=== PATIENT | female | born 1985 | race Caucasian/White ===

== ENCOUNTER → 2018-10-16 12:39 | Outpatient (CLI) | payer OTHER, SELFPAY ==
[2018-10-16 10:08] VITALS: BMI 21.6
== END ==
PROVIDERS: Referring Provider Nurse Practitioner Women's Health; Visit Provider Nurse Practitioner Women's Health
DX: N89.8 Other specified noninflammatory disorders of vagina (principal)
CPT/HCPCS: 87070; 87077; 87186; 87205

== ENCOUNTER → 2018-12-06 11:09 | Outpatient (CLI) | payer OTHER, SELFPAY ==
[2018-11-22 10:29] VITALS: BMI 21.6
[2018-12-06 12:27] LABS: Absolute Lymphocyte Count 1.88 X10^3/ul (0.83-4.51); Basophil# 0.02 X10^3/uL; Basophil% 0.4 % (0-1); Eosinophil# 0.17 X10^3/uL; Eosinophils% 3.1 % (0-5); Hematocrit 46.2 % (37-47); Hemoglobin 15.3 g/dl (12.0-15.0); Lymphocyte # 1.88 X10^3/ul (4.0); Lymphocyte % 34.6 % (19-41); Mean Corp Hgb Conc 33.1 g/gl (32-36); Mean Corpuscular Hgb 29.9 pg (27.0-32.0); Mean Corpuscular Volume 90.2 fL (81-99); Mean Platelet Vol. 9.2 fl (6.2-12.0); Monocyte% 7.4 % (0-10); Neutrophil # 2.97 X10^3/uL (2.7-7.7); Neutrophil % 54.5 % (47-70); Platelet Count 290 K/mm3 (150-450); RBC Distribution Width CV 12.2 % (11.6-14.6); RBC Distribution Width SD 39.9 fl (35.1-43.9); Red Blood Count 5.12 M/mm3 (4.2-5.4); White Blood Count 5.4 K/mm3 (4.4-11.0)
[2018-12-06 12:30] LABS: POSITIVE COUNT NO; POSITIVE DIFFERENTIAL NO; POSITIVE MORPHOLOGY NO
[2018-12-06 13:06] LABS: Hemoglobin A1c 5.3 % (4.2-6.3)
[2018-12-06 13:23] LABS: Cholesterol 185 mg/dL (200); High Density Lipoprotein 75 mg/dL; Thyroid Stim Hormone (TSH) 0.65 uIU/mL (0.358-3.74); Triglycerides 56 mg/dL; Very Low Density Lipoprotein 11 mg/dL (5-40)
[2018-12-06 14:32] LABS: Rubella IgG 3.5 IU/mL
[2018-12-07 16:25] LABS: Mumps Antibody,IgG < 9.0 AU/mL (Immune >10.9); V-Zoster IgG (Immunity) > 4000 index (Immune >165)
== END ==
PROVIDERS: Family Provider Internal Medicine; PCP Internal Medicine; Referring Provider Internal Medicine; Visit Provider Internal Medicine
DX: Z00.01 Encounter for general adult medical examination with abnormal findings (principal); R53.82 Chronic fatigue, unspecified; R73.09 Other abnormal glucose; Z13.220 Encounter for screening for lipoid disorders; Z13.29 Encounter for screening for other suspected endocrine disorder
CPT/HCPCS: 36415; 80061; 83036; 84443; 85025; 86735; 86762; 86765; 86787

== ENCOUNTER → 2021-03-25 | Outpatient (CLI) | payer OTHER, SELFPAY ==
[2021-03-25 12:52] VITALS: BMI 23.8
[2021-03-30 20:19] LABS: HPV APTIMA, High Risk Negative (Negative)
== END | disposition home or self-care (01) ==
PROVIDERS: Referring Provider Nurse Practitioner Women's Health; Visit Provider Nurse Practitioner Women's Health
DX: Z12.4 Encounter for screening for malignant neoplasm of cervix (principal)
CPT/HCPCS: 87624; 88175; G0145

== ENCOUNTER 2021-11-27 17:02 | Outpatient (CLI) | payer OTHER, SELFPAY | END 2021-11-27 23:59 | disposition home or self-care (01) | PROVIDERS: Visit Provider Obstetrics & Gynecology | DX: N89.8 Other specified noninflammatory disorders of vagina (principal) | CPT/HCPCS: 87070; 87205 ==

== ENCOUNTER 2022-04-14 16:39 | Outpatient (CLI) | payer OTHER, SELFPAY | END 2022-04-14 23:59 | disposition home or self-care (01) | LOC: LABSPEC 16:40 | PROVIDERS: Visit Provider Nurse Practitioner Women's Health | DX: N76.0 Acute vaginitis (principal) | CPT/HCPCS: 87070; 87205 ==

== ENCOUNTER → 2024-01-26 | Outpatient (CLI) | payer OTHER, SELFPAY ==
[2024-01-29 07:06] LABS: Chlamydia By Nucleic Acid AMP Negative (Negative); Gonococcus By Nucleic Acid AMP Negative (Negative)
== END | disposition home or self-care (01) ==
LOC: LABSPEC 10:33
PROVIDERS: Referring Provider Nurse Practitioner Women's Health; Visit Provider Nurse Practitioner Women's Health
DX: Z11.3 Encounter for screening for infections with a predominantly sexual mode of transmission (principal)
CPT/HCPCS: 87491; 87591

== ENCOUNTER → 2025-06-05 | Outpatient (CLI) | payer OTHER, SELFPAY ==
--- OUTSIDE RECORDS SUMMARY | 2025-06-05 07:34 | XMS RPT_ITS | CCD ---
Author Organization [facility] Care Team Providers Care Portfolio Administrator Name Role Phone KHUSHI ARCE Attending Unavailable Candis PROCESS PUMPER, NATAN Mensah Attending Provider YOSSI AGUILAR Primary Care Unavailable KHUSHI FARLEY Attending Unavaila Shasha Dixon Referring Unavailable Shasha Rubin Attending Unavailable Shasha Rubin Primary Care Unavailable Shasha Rubin Primary Care Unavailable Shasha Rubin Referring Unavailable Shasha Rubin Attending Unavailable Allergies Allergy Classification Reported Allergen(s) Allergy Type Date of Onset Reaction(s) Facility (2 sources) Azithromycin; Translations: [AZITHROMYCIN] Drug Allergy 04-14-[address] [facility] Other [place] [facility] (1 source) Azithromycin Drug Allergy 01-26-2024 [facility] Repository Medications Current Medications Medication Drug Class(es) Dates Sig (Normalized) Sig (Original) copper 313 mg drug implant (1 source) Copper-containing Intrauterine Device Start: 12-07-2021 Copper (Paragard T 380a) 380 square mm intrauterine device Active 1 DEVICE INTRA-UTER ONCE December 07, 2021 12:00am as a single dose PARoxetine hydrochloride 10 mg oral tablet (2 sources) Serotonin Reuptake Inhibitor Start: 03-25-2021 take 2 tablets by mouth once daily Paroxetine Hcl (Paxil) 10 mg tablet Active 20 MG PO DAILY March 25, 2021 12:53pm Start: 10-16-2018 End: 03-25-2021 take 1 tablet by mouth once daily Paroxetine Hcl (Paxil) 10 mg tablet Discontinued 10 MG PO DAILY October 16, 2018 1:00am March 25, 2021 12:53pm SUMAtriptan 50 mg oral tablet (1 source) Serotonin-1b and Serotonin-1d Receptor Agonist Start: 03-25-2021 take 1 tablet by mouth every two hours Sumatriptan Succinate (Imitrex) 50 mg tablet Active 0 PO .COMPLEX March 25, 2021 12:00am take 1 tab at onset of headache; if no relief may repeat 1 tab after at least 2 hrs; max = 4 tabs/24 hr PO Completed/Discontinued Medications Medication Drug Class(es) Dates Sig (Normalized) Sig (Original) azithromycin 250 mg oral tablet (1 source) Macrolide Antimicrobial Start: 11-18-2018 End: 11-23-2018 Azithromycin Discontinued 250 MG PO daily 6 November 18, 2018 1:00am November 23, 2018 1:08am 2 po qd for 1 day then 1 po qd for 4 days with food or after eating fluconazole 150 mg oral tablet (1 source) Azole Antifungal Start: 10-16-2018 End: 11-22-2018 Fluconazole Discontinued 150 MG PO .COMPLEX October 16, 2018 1:00am November 22, 2018 11:16am 150 mg PO take one po now and repeat in 3 days Problems Problem Classification Problem Date Documented Date Episodic/Chronic Anxiety disorders (1 source) Anxiety; Translations: [Anxiety disorder, unspecified] Chronic Cardiac dysrhythmias (1 source) Palpitations; Translations: [Palpitations] Onset: 06-04-2025 Episodic Headache; including migraine (1 source) Migraine without aura, not refractory ; Translations: [Migraine without aura, not intractable, without status migrainosus] Chronic Nonspecific chest pain (1 source) Other chest pain; Translations: [Other chest pain] Onset: 06-04-2025 Episodic Other female genital disorders (1 source) Vulvar cyst; Translations: [Other specified noninflammatory disorders of vulva and perineum] Episodic Other female genital disorders (1 source) Other specified noninflammatory disorders of vagina; Translations: [Other specified symptoms associated with female genital organs] Episodic Other injuries and conditions due to external causes (1 source) Foreign body in vulva and vagina, initial encounter; Translations: [Vaginal foreign body, initial encounter] Onset: 12-09-2024 Episodic Results Test Name Value Interpretation Reference Range Facility ED NOTEon 12-09-2024 ED NOTE HNO ID: [id number] Author: REGINALD ADAN RN Service: Emergency Medicine Author Type: Registered Nurse Type: ED Notes Filed: 12/09/2024 23:29 Note Text: Patient discharge instructions given to patient. Patient educated on discharge instructions. Patient denied having questions at this time regarding discharge instructions. Patient discharged home at this time. Normal [facility] ED NOTE HNO ID: [id number] Author: REGINALD ADAN, RN Service: Emergency Medicine Author Type: Registered Nurse Type: ED Notes Filed: 12/09/2024 23:10 Note Text: ED physician at bedside with female nurse at this time. Normal [facility] ED PROV NOTEon 12-09-2024 ED PROV NOTE HNO ID: [id number] Author: KHUSHI FARLEY DO Service: Emergency Medicine Author Type: Physician Type: ED Provider Notes Filed: 12/10/2024 06:32 Note Text: ED Provider Note Patient Name: Gaetano Rowan : 1985 SERVICE DATE: 12/09/24 History Patient presents with: Foreign Body Vagina Gaetano Rowan is a 39 year old female who presents with Foreign Body Vagina. - Symptoms began this evening. - Severity: mild - Timing: constant - Symptoms are associated with retained tampon in vagina. - Symptoms are not associated with vaginal discharge, pelvic pain, fever, chills. Patient presents with a retained tampon in the vagina. She states that she put the tampon in this afternoon and about 6:00 pm she went to take it out and she states she could not reach it to remove it. She has been trying to get the tampon out since. She states she has no vaginal discharge. No pelvic or abdominal pain. No fever or chills. History reviewed. No pertinent past medical history. History reviewed. No pertinent surgical history. No family history on file. Social History Tobacco Use Smoking status: Never Smokeless tobacco: Never Substance and Sexual Activity Alcohol use: Yes Comment: occasionally Drug use: No Sexual activity: Not on file ALLERGIES Allergen Reactions Azithromycin Other: See Comments Causes my heart to race. Review of Systems Constitutional: Negative for chills and fever. Gastrointestinal: Negative for abdominal pain and vomiting. Genitourinary: Negative for dysuria, pelvic pain, vaginal discharge and vaginal pain. + Retained tampon in vagina Musculoskeletal: Negative for back pain. Skin: Negative for rash. Psychiatric/Behavioral: Negative for agitation and confusion. Physical Exam Vitals [12/09/24 2303] BP Pulse Temp Temp src Resp SpO2 Weight Height 125/78 (!) 93 36.7 ?C (98 ?F) Temporal 14 99 % 52.2 kg (115 lb) 1.575 m (5' 2) Physical Exam Vitals and nursing note reviewed. Exam conducted with a drama therapist present. Constitutional: General: She is not in acute distress. Appearance: She is not ill-appearing, toxic-appearing or diaphoretic. Cardiovascular: Rate and Rhythm: Normal rate and regular rhythm. Pulses: Normal pulses. Pulmonary: Effort: Pulmonary effort is normal. Breath sounds: Normal breath sounds. Abdominal: General: Abdomen is flat. Bowel sounds are normal. There is no distension. Palpations: Abdomen is soft. Genitourinary: Vagina: Foreign body (Tampon) present. No vaginal discharge or bleeding. Cervix: No cervical motion tenderness, discharge, erythema or cervical bleeding. Uterus: Not tender. Adnexa: Right: No tenderness. Left: No tenderness. Comments: There is a tampon within the vagina. There is no active bleeding or discharge. Tampon was removed easily with forceps. Strings from IUD noted at cervical os, no bleeding or discharge from cervix. Skin: General: Skin is warm and dry. Capillary Refill: Capillary refill takes less than 2 seconds. Neurological: General: No focal deficit present. Mental Status: She is alert and oriented to person, place, and time. Psychiatric: Mood and Affect: Mood normal. Behavior: Behavior normal. Diagnostic Testing ED Labs Ordered and Reviewed - No data to display Procedures ED Course / Clinical Impression Clinical Impressions as of 12/10/24 0632 Vaginal foreign body, initial encounter - tampon MDM / Disposition / Plan Tampon was removed without difficulty from vagina with forceps. After removal, there is no no bleeding or discharge seen on exam. Patient has no cervical or pelvic tenderness on exam. She feels comfortable going home. At this time, patient will be discharged home. She was instructed on signs and symptoms to watch for and reasons to return to the emergency department, otherwise follow-up with primary. Differential Diagnoses - Retained tampon in vagina - removed is more likely for the following reason(s): suggested by HANDP - Vaginal infection is less likely for the following reason(s): HANDP not suggestive Disposition The patient was discharged. Counseled patient regarding suspected diagnosis. SIGNATURE: DO Gaston Hyatt JESSICA 12/10/24 0632 Normal [facility] 36on 08-19-2022 36 Appointment was unarrived and cancelled. Nothing further needed. Normal [facility] 36 Name of Caller: Isabella white Contact Reason for Appointment: Pt called to cancel appt but appt was already anne as arrive. Please advise Office Name: [facility] Medication Refills need, if any: any Medication Name: an y Normal [facility] SARS-CoV-2 (COVID-19) RT-PCR on 04-23-2022 SARS-CoV-2 (COVID-19) RNA JAYA+probe Ql (Unsp spec) Positive Abnormal [facility] Comment on above: Order Comment: Is th is a pre-procedure screening test?->No Is this order Clinic Collect?->Yes Is this specimen being sent to an external lab?->No Release to patient->Automatic [id number]&Nasal swab^\S\^Nose&Nose Result Comment: POSI TIVE: SARS-CoV-2 RNA was detected - Interpretation: A positive result indicates severe acute respiratory syndrome coronavirus 2 (SARS-CoV-2) RNA is present. Clinical correlation with patient history and other diagnostic information is necessary to determine patient infection status. Positive results do not rule out bacterial infection or co-infection with other viruses. - Method: Real-time reverse transcriptase PCR amplification for the qualitative detection of the ORF1 a/b non-structural region that is unique to SARS-CoV-2 and a conserved region in the structural protein envelope E-gene for prince-Sarbecovirus detection using the Tracy SARS-CoV-2 assay on the Dylon Tracy 6800 System. - Comment: This test has received FDA Emergency Use Authorization (EUA) and has been verified by [facility]. This test is only authorized for the duration of the public health emergency declaration and the circumstances that exist to justify the authorization of the emergency use of in vitro diagnostic tests for the detection of SARS-CoV-2 virus and/or diagnosis of COVID-19 infection under section 564(b)(1) of the Act, 21 U.S.C. 360bbb-3(b)(1), unless the authorization is terminated or revoked sooner. This test has not been FDA cleared or approved. Results should be used in conjunction with clinical findings, and should not form the sole basis for a diagnosis or treatment decision. - Fact Sheets for this EUA can be found at the following links: For Healthcare Providers: www.[employer].gov/media/313736/download For Patients: www.[employer].gov/[employer]/838205/download - Reference Value: Negative Performed By: #### C OVID #### [place] [address] TRACY SARS CoV-2 RT PCR Detected Normal [facility] Comment on above: Order Comment: Is th is a pre-procedure screening test?->No Is this order Clinic Collect?->Yes Is this specimen being sent to an external lab?->No Release to patient->Automatic [id number]&Nasal swab^\S\^Nose&Nose Performed By: #### C OVID #### [place] [address] SARS-CoV-2 (COVID-19) RT-PCR on 04-21-2022 Date of Symptom Onset [id number] Normal [facility] Comment on above: Order Comment: Is th is a pre-procedure screening test?->No Is this order Clinic Collect?->Yes Is this specimen being sent to an external lab?->No Release to patient->Automatic [id number]&Nasal swab^\S\^Nose&Nose Performed By: #### C OVID #### [place] [address] ICU? No Normal [facility] Comment on above: Order Comment: Is th is a pre-procedure screening test?->No Is this order Clinic Collect?->Yes Is this specimen being sent to an external lab?->No Release to patient->Automatic [id number]&Nasal swab^\S\^Nose&Nose Performed By: #### C OVID #### [place] [address] ? Unknown Normal [facility] Comment on above: Order Comment: Is th is a pre-procedure screening test?->No Is this order Clinic Collect?->Yes Is this specimen being sent to an external lab?->No Release to patient->Automatic [id number]&Nasal swab^\S\^Nose&Nose Performed By: #### C OVID #### [place] [address] Resident in [facility] care setting? No Normal [facility] Comment on above: Order Comment: Is th is a pre-procedure screening test?->No Is this order Clinic Collect?->Yes Is this specimen being sent to an external lab?->No Release to patient->Automatic [id number]&Nasal swab^\S\^Nose&Nose Performed By: #### C OVID #### [place] [address] SARS-CoV-2 (COVID-19) RNA JAYA+probe Ql (Unsp spec) Yes Normal [facility] Comment on above: Order Comment: Is th is a pre-procedure screening test?->No Is this order Clinic Collect?->Yes Is this specimen being sent to an external lab?->No Release to patient->Automatic 11001&Nasal swab^\S\^Nose&Nose Performed By: #### C OVID #### [place] [address] Symptomatic as defined by CDC? Yes Normal [facility] Comment on above: Order Comment: Is th is a pre-procedure screening test?->No Is this order Clinic Collect?->Yes Is this specimen being sent to an external lab?->No Release to patient->Automatic 28540&Nasal swab^\S\^Nose&Nose Performed By: #### C OVID #### [place] [address] SARS-CoV-2 (COVID-19) RT-PCR on 09-22-2021 SARS-CoV-2 (COVID-19) RNA JAYA+probe Ql (Unsp spec) Negative Normal [facility] Comment on above: Order Comment: Is th is order Clinic Collect?->Yes Is this specimen being sent to an external lab?->No Release to patient->Automatic [id number]&Nasal swab^\S\^Nose (source)&Nose (source) Result Comment: NEGA TIVE: SARS-CoV-2 RNA was NOT detected - Interpretation: A negative result indicates severe acute respiratory syndrome coronavirus 2 (SARS-CoV-2) RNA was not detected. Negative results do not preclude SARS-CoV-2 infection and should not be used as the sole basis for patient management decisions. Negative results must be combined with clinical observations, patient history, and epidemiological information. The possibility of a false negative result should be considered if the patient's recent exposures or clinical presentation suggest that SARS-CoV-2 infection is possible, and diagnostic tests for other causes of illness are negative. If SARS-CoV-2 infection is still suspected, re-testing should be considered. - Method: Real-time reverse transcriptase PCR amplification for the qualitative detection of the ORF1 a/b non-structural region that is unique to SARS-CoV-2 and a conserved region in the structural protein envelope E-gene for prince-Sarbecovirus detection using the Tracy SARS-CoV-2 assay on the [employer] Tracy 6800 System. - Comment: This test has received FDA Emergency Use Authorization (EUA) and has been verified by [facility]. This test is only authorized for the duration of the public health emergency declaration and the circumstances that exist to justify the authorization of the emergency use of in vitro diagnostic tests for the detection of SARS-CoV-2 virus and/or diagnosis of COVID-19 infection under section 564(b)(1) of the Act, 21 U.S.C. 360bbb-3(b)(1), unless the authorization is terminated or revoked sooner. This test has not been FDA cleared or approved. Results should be used in conjunction with clinical findings, and should not form the sole basis for a diagnosis or treatment decision. - Fact Sheets for this EUA can be found at the following links: For Healthcare Providers: www.fda.gov/media/664171/download For Patients: www.fda.gov/media/036616/download - Reference Value: Negative Performed By: #### C OVID #### [address] [address] TRACY SARS CoV-2 RT PCR Not detected Normal [facility] Comment on above: Order Comment: Is th is order Clinic Collect?->Yes Is this specimen being sent to an external lab?->No Release to patient->Automatic 93635&Nasal swab^\S\^Nose (source)&Nose (source) Performed By: #### C OVID #### [place] [address] SARS-CoV-2 (COVID-19) RT-PCR on 09-21-2021 Hospitalized? No Normal [facility] Comment on above: Order Comment: Is th is order Clinic Collect?->Yes Is this specimen being sent to an external lab?->No Release to patient->Automatic 51239&Nasal swab^\S\^Nose (source)&Nose (source) Performed By: #### C OVID #### [address] [address] ICU? No Normal [facility] Comment on above: Order Comment: Is th is order Clinic Collect?->Yes Is this specimen being sent to an external lab?->No Release to patient->Automatic 09154&Nasal swab^\S\^Nose (source)&Nose (source) Performed By: #### C OVID #### [address] [address] ? Unknown Normal [facility] Comment on above: Order Comment: Is th is order Clinic Collect?->Yes Is this specimen being sent to an external lab?->No Release to patient->Automatic 76974&Nasal swab^\S\^Nose (source)&Nose (source) Performed By: #### C OVID #### [address] [address] Resident in congregate care setting? No Normal [facility] Comment on above: Order Comment: Is th is order Clinic Collect?->Yes Is this specimen being sent to an external lab?->No Release to patient->Automatic 34523&Nasal swab^\S\^Nose (source)&Nose (source) Performed By: #### C OVID #### [facility] [address] [place] [address] SARS-CoV-2 (COVID-19) RT-PCR on 09-15-2021 SARS-CoV-2 (COVID-19) RNA JAYA+probe Ql (Unsp spec) Negative Normal [facility] Comment on above: Order Comment: Is th is order Clinic Collect?->Yes Is this specimen being sent to an external lab?->No Release to patient->Automatic 23595&Nasal swab^\S\^Nose (source)&Nose (source) Result Comment: NEGA TIVE: SARS-CoV-2 RNA was NOT detected - Interpretation: A negative result indicates severe acute respiratory syndrome coronavirus 2 (SARS-CoV-2) RNA was not detected. Negative results do not preclude SARS-CoV-2 infection and should not be used as the sole basis for patient management decisions. Negative results must be combined with clinical observations, patient history, and epidemiological information. The possibility of a false negative result should be considered if the patient's recent exposures or clinical presentation suggest that SARS-CoV-2 infection is possible, and diagnostic tests for other causes of illness are negative. If SARS-CoV-2 infection is still suspected, re-testing should be considered. - Method: Real-time reverse transcriptase PCR amplification for the qualitative detection of the ORF1 a/b non-structural region that is unique to SARS-CoV-2 and a conserved region in the structural protein envelope E-gene for prince-Sarbecovirus detection using the Tracy SARS-CoV-2 assay on the [employer] Tracy [employer] System. - Comment: This test has received FDA Emergency Use Authorization (EUA) and has been verified by [facility]. This test is only authorized for the duration of the public health emergency declaration and the circumstances that exist to justify the authorization of the emergency use of in vitro diagnostic tests for the detection of SARS-CoV-2 virus and/or diagnosis of COVID-19 infection under section 564(b)(1) of the Act, 21 U.S.C. 360bbb-3(b)(1), unless the authorization is terminated or revoked sooner. This test has not been FDA cleared or approved. Results should be used in conjunction with clinical findings, and should not form the sole basis for a diagnosis or treatment decision. - Fact Sheets for this EUA can be found at the following links: For Healthcare Providers: www.fda.gov/media/749109/download For Patients: www.fda.gov/media/558541/download - Reference Value: Negative Performed By: #### C OVID #### [place] [address] TRACY SARS CoV-2 RT PCR Not detected Normal [facility] Comment on above: Order Comment: Is th is order Clinic Collect?->Yes Is this specimen being sent to an external lab?->No Release to patient->Automatic 89204&Nasal swab^\S\^Nose (source)&Nose (source) Performed By: #### C OVID #### [place] [address] SARS-CoV-2 (COVID-19) RT-PCR on 09-14-2021 Hospitalized? No Normal [facility] Comment on above: Order Comment: Is th is order Clinic Collect?->Yes Is this specimen being sent to an external lab?->No Release to patient->Automatic 34033&Nasal swab^\S\^Nose (source)&Nose (source) Performed By: #### C OVID #### [place] [address] ICU? No Normal [facility] Comment on above: Order Comment: Is th is order Clinic Collect?->Yes Is this specimen being sent to an external lab?->No Release to patient->Automatic 76405&Nasal swab^\S\^Nose (source)&Nose (source) Performed By: #### C OVID #### [place] [address] ? Unknown Normal [facility] Comment on above: Order Comment: Is th is order Clinic Collect?->Yes Is this specimen being sent to an external lab?->No Release to patient->Automatic 62615&Nasal swab^\S\^Nose (source)&Nose (source) Performed By: #### C OVID #### [address] [id number] Resident in congregate care setting? No Normal [facility] Comment on above: Order Comment: Is th is order Clinic Collect?->Yes Is this specimen being sent to an external lab?->No Release to patient->Automatic 76062&Nasal swab^\S\^Nose (source)&Nose (source) Performed By: #### C OVID #### [address] [address] SARS-CoV-2 (COVID-19) RT-PCR on 09-12-2021 SARS-CoV-2 (COVID-19) RNA JAYA+probe Ql (Unsp spec) Negative Normal [facility] Comment on above: Order Comment: Is th is order Clinic Collect?->Yes Is this specimen being sent to an external lab?->No Release to patient->Automatic 10908&Nasal swab^\S\^Nose (source)&Nose (source) Result Comment: NEGA TIVE: SARS-CoV-2 RNA was NOT detected - Interpretation: A negative result indicates severe acute respiratory syndrome coronavirus 2 (SARS-CoV-2) RNA was not detected. Negative results do not preclude SARS-CoV-2 infection and should not be used as the sole basis for patient management decisions. Negative results must be combined with clinical observations, patient history, and epidemiological information. The possibility of a false negative result should be considered if the patient's recent exposures or clinical presentation suggest that SARS-CoV-2 infection is possible, and diagnostic tests for other causes of illness are negative. If SARS-CoV-2 infection is still suspected, re-testing should be considered. - Method: Real-time reverse transcriptase PCR amplification for the qualitative detection of the ORF1 a/b non-structural region that is unique to SARS-CoV-2 and a conserved region in the structural protein envelope E-gene for prince-Sarbecovirus detection using the Tracy SARS-CoV-2 assay on the [employer] Tracy 6800 System. - Comment: This test has received FDA Emergency Use Authorization (EUA) and has been verified by [facility]. This test is only authorized for the duration of the public health emergency declaration and the circumstances that exist to justify the authorization of the emergency use of in vitro diagnostic tests for the detection of SARS-CoV-2 virus and/or diagnosis of COVID-19 infection under section 564(b)(1) of the Act, 21 U.S.C. 360bbb-3(b)(1), unless the authorization is terminated or revoked sooner. This test has not been FDA cleared or approved. Results should be used in conjunction with clinical findings, and should not form the sole basis for a diagnosis or treatment decision. - Fact Sheets for this EUA can be found at the following links: For Healthcare Providers: www.fda.gov/media/926331/download For Patients: www.fda.gov/media/893615/download - Reference Value: Negative Performed By: #### C OVID #### [facility] [address] [place] [address] SARS-CoV-2 (COVID-19) RT-PCR on 09-11-2021 TRACY SARS CoV-2 RT PCR Not detected Normal [facility] Comment on above: Order Comment: Is th is order Clinic Collect?->Yes Is this specimen being sent to an external lab?->No Release to patient->Automatic [id number]&Nasal swab^\S\^Nose (source)&Nose (source) Performed By: #### C OVID #### [facility] [address] [place] [address] SARS-CoV-2 (COVID-19) RT-PCR on 09-10-2021 Hospitalized? No [facility] Comment on above: Order Comment: Is th is order Clinic Collect?->Yes Is this specimen being sent to an external lab?->No Release to patient->Automatic 73099&Nasal swab^\S\^Nose (source)&Nose (source) Performed By: #### C OVID #### [place] [address] ICU? No [facility] Comment on above: Order Comment: Is th is order Clinic Collect?->Yes Is this specimen being sent to an external lab?->No Release to patient->Automatic [id number]&Nasal swab^\S\^Nose (source)&Nose (source) Performed By: #### C OVID #### [place] [address] ? Unknown [facility] Comment on above: Order Comment: Is th is order Clinic Collect?->Yes Is this specimen being sent to an external lab?->No Release to patient->Automatic [id number]&Nasal swab^\S\^Nose (source)&Nose (source) Performed By: #### C OVID #### [place] [address] Resident in congregate care setting? No [facility] Comment on above: Order Comment: Is th is order Clinic Collect?->Yes Is this specimen being sent to an external lab?->No Release to patient->Automatic [id number]&Nasal swab^\S\^Nose (source)&Nose (source) Performed By: #### C OVID #### [place] [address] SARS-CoV-2 (COVID-19) RT-PCR on 08-30-2021 SARS-CoV-2 (COVID-19) RNA JAYA+probe Ql (Unsp spec) Negative [facility] Comment on above: Order Comment: Is th is order Clinic Collect?->Yes Is this specimen being sent to an external lab?->No Release to patient->Automatic 77780&Nasal swab^\S\^Nasal Septum&Nasal Septum Result Comment: NEGA TIVE: SARS-CoV-2 RNA was NOT detected - Interpretation: A negative result indicates severe acute respiratory syndrome coronavirus 2 (SARS-CoV-2) RNA was not detected. Negative results do not preclude SARS-CoV-2 infection and should not be used as the sole basis for patient management decisions. Negative results must be combined with clinical observations, patient history, and epidemiological information. The possibility of a false negative result should be considered if the patient's recent exposures or clinical presentation suggest that SARS-CoV-2 infection is possible, and diagnostic tests for other causes of illness are negative. If SARS-CoV-2 infection is still suspected, re-testing should be considered. - Method: Real-time reverse transcriptase PCR amplification for the qualitative detection of the ORF1 a/b non-structural region that is unique to SARS-CoV-2 and a conserved region in the structural protein envelope E-gene for prince-Sarbecovirus detection using the Tracy SARS-CoV-2 assay on the [employer] Tracy [employer] System. - Comment: This test has received FDA Emergency Use Authorization (EUA) and has been verified by [facility]. This test is only authorized for the duration of the public health emergency declaration and the circumstances that exist to justify the authorization of the emergency use of in vitro diagnostic tests for the detection of SARS-CoV-2 virus and/or diagnosis of COVID-19 infection under section 564(b)(1) of the Act, 21 U.S.C. 360bbb-3(b)(1), unless the authorization is terminated or revoked sooner. This test has not been FDA cleared or approved. Results should be used in conjunction with clinical findings, and should not form the sole basis for a diagnosis or treatment decision. - Fact Sheets for this EUA can be found at the following links: For Healthcare Providers: www.fda.gov/media/412523/download For Patients: www.fda.gov/media/376559/download - Reference Value: Negative Performed By: #### C OVID #### [address] [address] SARS-CoV-2 (COVID-19) RT-PCR on 08-29-2021 TRACY SARS CoV-2 RT PCR Not detected [facility] Comment on above: Order Comment: Is th is order Clinic Collect?->Yes Is this specimen being sent to an external lab?->No Release to patient->Automatic [id number]&Nasal swab^\S\^Nasal Septum&Nasal Septum Performed By: #### C OVID #### [place] [address] SARS-CoV-2 (COVID-19) RT-PCR on 08-28-2021 Hospitalized? No [facility] Comment on above: Order Comment: Is th is order Clinic Collect?->Yes Is this specimen being sent to an external lab?->No Release to patient->Automatic [id number]&Nasal swab^\S\^Nasal Septum&Nasal Septum Performed By: #### C OVID #### [place] [address] ICU? No [facility] Comment on above: Order Comment: Is th is order Clinic Collect?->Yes Is this specimen being sent to an external lab?->No Release to patient->Automatic 07145&Nasal swab^\S\^Nasal Septum&Nasal Septum Performed By: #### C OVID #### [place] [address] ? Unknown [facility] Comment on above: Order Comment: Is th is order Clinic Collect?->Yes Is this specimen being sent to an external lab?->No Release to patient->Automatic 03342&Nasal swab^\S\^Nasal Septum&Nasal Septum Performed By: #### C OVID #### [place] [address] Resident in [facility] care setting? No [facility] Comment on above: Order Comment: Is th is order Clinic Collect?->Yes Is this specimen being sent to an external lab?->No Release to patient->Automatic 36137&Nasal swab^\S\^Nasal Septum&Nasal Septum Performed By: #### C OVID #### [place] [address] SARS-CoV-2 (COVID-19) RT-PCR on 08-21-2021 SARS-CoV-2 (COVID-19) RNA JAYA+probe Ql (Unsp spec) Negative [facility] Comment on above: Order Comment: Is th is order Clinic Collect?->Yes Is this specimen being sent to an external lab?->No Release to patient->Automatic 79561&Nasal swab^\S\^Nasal Septum&Nasal Septum Result Comment: NEGA TIVE: SARS-CoV-2 RNA was NOT detected - Interpretation: A negative result indicates severe acute respiratory syndrome coronavirus 2 (SARS-CoV-2) RNA was not detected. Negative results do not preclude SARS-CoV-2 infection and should not be used as the sole basis for patient management decisions. Negative results must be combined with clinical observations, patient history, and epidemiological information. The possibility of a false negative result should be considered if the patient's recent exposures or clinical presentation suggest that SARS-CoV-2 infection is possible, and diagnostic tests for other causes of illness are negative. If SARS-CoV-2 infection is still suspected, re-testing should be considered. - Method: Real-time reverse transcriptase PCR amplification for the qualitative detection of the ORF1 a/b non-structural region that is unique to SARS-CoV-2 and a conserved region in the structural protein envelope E-gene for prince-Sarbecovirus detection using the Tracy SARS-CoV-2 assay on the [employer] Tracy 6800 System. - Comment: This test has received FDA Emergency Use Authorization (EUA) and has been verified by [facility]. This test is only authorized for the duration of the public health emergency declaration and the circumstances that exist to justify the authorization of the emergency use of in vitro diagnostic tests for the detection of SARS-CoV-2 virus and/or diagnosis of COVID-19 infection under section 564(b)(1) of the Act, 21 U.S.C. 360bbb-3(b)(1), unless the authorization is terminated or revoked sooner. This test has not been FDA cleared or approved. Results should be used in conjunction with clinical findings, and should not form the sole basis for a diagnosis or treatment decision. - Fact Sheets for this EUA can be found at the following links: For Healthcare Providers: www.fda.gov/media/328959/download For Patients: www.fda.gov/media/338244/download - Reference Value: Negative Performed By: #### C OVID #### [address] [address] TRACY SARS CoV-2 RT PCR Not detected [facility] Comment on above: Order Comment: Is th is order Clinic Collect?->Yes Is this specimen being sent to an external lab?->No Release to patient->Automatic 07036&Nasal swab^\S\^Nasal Septum&Nasal Septum Performed By: #### C OVID #### [place] [address] SARS-CoV-2 (COVID-19) RT-PCR on 08-20-2021 Hospitalized? No [facility] Comment on above: Order Comment: Is th is order Clinic Collect?->Yes Is this specimen being sent to an external lab?->No Release to patient->Automatic 35909&Nasal swab^\S\^Nasal Septum&Nasal Septum Performed By: #### C OVID #### [address] [address] ICU? No [facility] Comment on above: Order Comment: Is th is order Clinic Collect?->Yes Is this specimen being sent to an external lab?->No Release to patient->Automatic 85479&Nasal swab^\S\^Nasal Septum&Nasal Septum Performed By: #### C OVID #### [address] [address] ? Unknown [facility] Comment on above: Order Comment: Is th is order Clinic Collect?->Yes Is this specimen being sent to an external lab?->No Release to patient->Automatic 03488&Nasal swab^\S\^Nasal Septum&Nasal Septum Performed By: #### C OVID #### [address] [address] Resident in congregate care setting? No [facility] Comment on above: Order Comment: Is th is order Clinic Collect?->Yes Is this specimen being sent to an external lab?->No Release to patient->Automatic 21006&Nasal swab^\S\^Nasal Septum&Nasal Septum Performed By: #### C OVID #### [address] [address] SARS-CoV-2 (COVID-19) RT-PCR on 08-13-2021 SARS-CoV-2 (COVID-19) RNA JAYA+probe Ql (Unsp spec) Negative [facility] Comment on above: Order Comment: Is th is order Clinic Collect?->Yes Is this specimen being sent to an external lab?->No Release to patient->Automatic 81025&Nasal swab^\S\^Nasal Septum&Nasal Septum Result Comment: NEGA TIVE: SARS-CoV-2 RNA was NOT detected - Interpretation: A negative result indicates severe acute respiratory syndrome coronavirus 2 (SARS-CoV-2) RNA was not detected. Negative results do not preclude SARS-CoV-2 infection and should not be used as the sole basis for patient management decisions. Negative results must be combined with clinical observations, patient history, and epidemiological information. The possibility of a false negative result should be considered if the patient's recent exposures or clinical presentation suggest that SARS-CoV-2 infection is possible, and diagnostic tests for other causes of illness are negative. If SARS-CoV-2 infection is still suspected, re-testing should be considered. - Method: Real-time reverse transcriptase PCR amplification for the qualitative detection of the ORF1 a/b non-structural region that is unique to SARS-CoV-2 and a conserved region in the structural protein envelope E-gene for prince-Sarbecovirus detection using the Tracy SARS-CoV-2 assay on the [employer] Tracy [employer] System. - Comment: This test has received FDA Emergency Use Authorization (EUA) and has been verified by [facility]. This test is only authorized for the duration of the public health emergency declaration and the circumstances that exist to justify the authorization of the emergency use of in vitro diagnostic tests for the detection of SARS-CoV-2 virus and/or diagnosis of COVID-19 infection under section 564(b)(1) of the Act, 21 U.S.C. 360bbb-3(b)(1), unless the authorization is terminated or revoked sooner. This test has not been FDA cleared or approved. Results should be used in conjunction with clinical findings, and should not form the sole basis for a diagnosis or treatment decision. - Fact Sheets for this EUA can be found at the following links: For Healthcare Providers: www.[employer].gov/media/183881/download For Patients: www.[employer].gov/[employer]/354517/download - Reference Value: Negative Performed By: #### C OVID #### [place] [address] TRACY SARS CoV-2 RT PCR Not detected [facility] Comment on above: Order Comment: Is th is order Clinic Collect?->Yes Is this specimen being sent to an external lab?->No Release to patient->Automatic [id number]&Nasal swab^\S\^Nasal Septum&Nasal Septum Performed By: #### C OVID #### [place] [address] SARS-CoV-2 (COVID-19) RT-PCR on 08-12-2021 Hospitalized? No [facility] Comment on above: Order Comment: Is th is order Clinic Collect?->Yes Is this specimen being sent to an external lab?->No Release to patient->Automatic 13967&Nasal swab^\S\^Nasal Septum&Nasal Septum Performed By: #### C OVID #### [place] [address] ICU? No [facility] Comment on above: Order Comment: Is th is order Clinic Collect?->Yes Is this specimen being sent to an external lab?->No Release to patient->Automatic 16245&Nasal swab^\S\^Nasal Septum&Nasal Septum Performed By: #### C OVID #### [place] [address] ? Unknown [facility] Comment on above: Order Comment: Is th is order Clinic Collect?->Yes Is this specimen being sent to an external lab?->No Release to patient->Automatic 76513&Nasal swab^\S\^Nasal Septum&Nasal Septum Performed By: #### C OVID #### [address] [id number] Resident in congregate care setting? No [facility] Comment on above: Order Comment: Is th is order Clinic Collect?->Yes Is this specimen being sent to an external lab?->No Release to patient->Automatic 29990&Nasal swab^\S\^Nasal Septum&Nasal Septum Performed By: #### C OVID #### [address] [address] SARS-CoV-2 (COVID-19) RT-PCR on 08-05-2021 SARS-CoV-2 (COVID-19) RNA JAYA+probe Ql (Unsp spec) Negative [facility] Comment on above: Order Comment: Is th is order Clinic Collect?->Yes Is this specimen being sent to an external lab?->No Release to patient->Automatic 80644&Nasal swab^\S\^Nose (source)&Nose (source) Result Comment: NEGA TIVE: SARS-CoV-2 RNA was NOT detected - Interpretation: A negative result indicates severe acute respiratory syndrome coronavirus 2 (SARS-CoV-2) RNA was not detected. Negative results do not preclude SARS-CoV-2 infection and should not be used as the sole basis for patient management decisions. Negative results must be combined with clinical observations, patient history, and epidemiological information. The possibility of a false negative result should be considered if the patient's recent exposures or clinical presentation suggest that SARS-CoV-2 infection is possible, and diagnostic tests for other causes of illness are negative. If SARS-CoV-2 infection is still suspected, re-testing should be considered. - Method: Real-time reverse transcriptase PCR amplification for the qualitative detection of the ORF1 a/b non-structural region that is unique to SARS-CoV-2 and a conserved region in the structural protein envelope E-gene for prince-Sarbecovirus detection using the Tracy SARS-CoV-2 assay on the [employer] System. - Comment: This test has received FDA Emergency Use Authorization (EUA) and has been verified by [facility]. This test is only authorized for the duration of the public health emergency declaration and the circumstances that exist to justify the authorization of the emergency use of in vitro diagnostic tests for the detection of SARS-CoV-2 virus and/or diagnosis of COVID-19 infection under section 564(b)(1) of the Act, 21 U.S.C. 360bbb-3(b)(1), unless the authorization is terminated or revoked sooner. This test has not been FDA cleared or approved. Results should be used in conjunction with clinical findings, and should not form the sole basis for a diagnosis or treatment decision. - Fact Sheets for this EUA can be found at the following links: For Healthcare Providers: www.[employer].gov/media/556790/download For Patients: www.[employer].gov/[employer]/408759/download - Reference Value: Negative Performed By: #### C OVID #### [place] [address] SARS-CoV-2 (COVID-19) RT-PCR on 08-04-2021 TRACY SARS CoV-2 RT PCR Not detected [facility] Comment on above: Order Comment: Is th is order Clinic Collect?->Yes Is this specimen being sent to an external lab?->No Release to patient->Automatic 82853&Nasal swab^\S\^Nose (source)&Nose (source) Performed By: #### C OVID #### [place] [address] Hospitalized? No [facility] Comment on above: Order Comment: Is th is order Clinic Collect?->Yes Is this specimen being sent to an external lab?->No Release to patient->Automatic 26348&Nasal swab^\S\^Nose (source)&Nose (source) Performed By: #### C OVID #### [place] [address] ICU? No [facility] Comment on above: Order Comment: Is th is order Clinic Collect?->Yes Is this specimen being sent to an external lab?->No Release to patient->Automatic 67991&Nasal swab^\S\^Nose (source)&Nose (source) Performed By: #### C OVID #### [address] [address] ? Unknown [facility] Comment on above: Order Comment: Is th is order Clinic Collect?->Yes Is this specimen being sent to an external lab?->No Release to patient->Automatic 81150&Nasal swab^\S\^Nose (source)&Nose (source) Performed By: #### C OVID #### [place] [address] Resident in congregate care setting? No [facility] Comment on above: Order Comment: Is th is order Clinic Collect?->Yes Is this specimen being sent to an external lab?->No Release to patient->Automatic 61459&Nasal swab^\S\^Nose (source)&Nose (source) Performed By: #### C OVID #### [place] [address] SARS-CoV-2 (COVID-19) RT-PCR on 07-28-2021 SARS-CoV-2 (COVID-19) RNA JAYA+probe Ql (Unsp spec) Negative [facility] Comment on above: Order Comment: Is th is order Clinic Collect?->Yes Is this specimen being sent to an external lab?->No Release to patient->Automatic 72873&Nasopharyngeal swab^\S\^Nasal Septum&Nasal Septum Result Comment: NEGA TIVE: SARS-CoV-2 RNA was NOT detected - Interpretation: A negative result indicates severe acute respiratory syndrome coronavirus 2 (SARS-CoV-2) RNA was not detected. Negative results do not preclude SARS-CoV-2 infection and should not be used as the sole basis for patient management decisions. Negative results must be combined with clinical observations, patient history, and epidemiological information. The possibility of a false negative result should be considered if the patient's recent exposures or clinical presentation suggest that SARS-CoV-2 infection is possible, and diagnostic tests for other causes of illness are negative. If SARS-CoV-2 infection is still suspected, re-testing should be considered. - Method: Real-time reverse transcriptase PCR amplification for the qualitative detection of the ORF1 a/b non-structural region that is unique to SARS-CoV-2 and a conserved region in the structural protein envelope E-gene for prince-Sarbecovirus detection using the Tracy SARS-CoV-2 assay on the [employer] Tracy [employer] System. - Comment: This test has received FDA Emergency Use Authorization (EUA) and has been verified by [facility]. This test is only authorized for the duration of the public health emergency declaration and the circumstances that exist to justify the authorization of the emergency use of in vitro diagnostic tests for the detection of SARS-CoV-2 virus and/or diagnosis of COVID-19 infection under section 564(b)(1) of the Act, 21 U.S.C. 360bbb-3(b)(1), unless the authorization is terminated or revoked sooner. This test has not been FDA cleared or approved. Results should be used in conjunction with clinical findings, and should not form the sole basis for a diagnosis or treatment decision. - Fact Sheets for this EUA can be found at the following links: For Healthcare Providers: www.fda.gov/media/167411/download For Patients: www.fda.gov/media/085106/download - Reference Value: Negative Performed By: #### C OVID #### [address] [address] TRACY SARS CoV-2 RT PCR Not detected [facility] Comment on above: Order Comment: Is th is order Clinic Collect?->Yes Is this specimen being sent to an external lab?->No Release to patient->Automatic 26792&Nasopharyngeal swab^\S\^Nasal Septum&Nasal Septum Performed By: #### C OVID #### [address] [address] SARS-CoV-2 (COVID-19) RT-PCR on 07-27-2021 Hospitalized? No [facility] Comment on above: Order Comment: Is th is order Clinic Collect?->Yes Is this specimen being sent to an external lab?->No Release to patient->Automatic 83589&Nasopharyngeal swab^\S\^Nasal Septum&Nasal Septum Performed By: #### C OVID #### [place] [address] ICU? No [facility] Comment on above: Order Comment: Is th is order Clinic Collect?->Yes Is this specimen being sent to an external lab?->No Release to patient->Automatic 32745&Nasopharyngeal swab^\S\^Nasal Septum&Nasal Septum Performed By: #### C OVID #### [place] [address] ? Unknown [facility] Comment on above: Order Comment: Is th is order Clinic Collect?->Yes Is this specimen being sent to an external lab?->No Release to patient->Automatic 39760&Nasopharyngeal swab^\S\^Nasal Septum&Nasal Septum Performed By: #### C OVID #### [place] [address] Resident in congrega care setting? No [facility] Comment on above: Order Comment: Is th is order Clinic Collect?->Yes Is this specimen being sent to an external lab?->No Release to patient->Automatic 10351&Nasopharyngeal swab^\S\^Nasal Septum&Nasal Septum Performed By: #### C OVID #### [place] [address] SARS-CoV-2 (COVID-19) RT-PCR on 07-21-2021 SARS-CoV-2 (COVID-19) RNA JAYA+probe Ql (Unsp spec) Negative [facility] Comment on above: Order Comment: Is th is order Clinic Collect?->Yes Is this specimen being sent to an external lab?->No Release to patient->Automatic 88655&Nasopharyngeal swab^\S\^Nasal Septum&Nasal Septum Result Comment: NEGA TIVE: SARS-CoV-2 RNA was NOT detected - Interpretation: A negative result indicates severe acute respiratory syndrome coronavirus 2 (SARS-CoV-2) RNA was not detected. Negative results do not preclude SARS-CoV-2 infection and should not be used as the sole basis for patient management decisions. Negative results must be combined with clinical observations, patient history, and epidemiological information. The possibility of a false negative result should be considered if the patient's recent exposures or clinical presentation suggest that SARS-CoV-2 infection is possible, and diagnostic tests for other causes of illness are negative. If SARS-CoV-2 infection is still suspected, re-testing should be considered. - Method: Real-time reverse transcriptase PCR amplification for the qualitative detection of the ORF1 a/b non-structural region that is unique to SARS-CoV-2 and a conserved region in the structural protein envelope E-gene for prince-Sarbecovirus detection using the Tracy SARS-CoV-2 assay on the [employer] Tracy 6800 System. - Comment: This test has received FDA Emergency Use Authorization (EUA) and has been verified by [facility]. This test is only authorized for the duration of the public health emergency declaration and the circumstances that exist to justify the authorization of the emergency use of in vitro diagnostic tests for the detection of SARS-CoV-2 virus and/or diagnosis of COVID-19 infection under section 564(b)(1) of the Act, 21 U.S.C. 360bbb-3(b)(1), unless the authorization is terminated or revoked sooner. This test has not been FDA cleared or approved. Results should be used in conjunction with clinical findings, and should not form the sole basis for a diagnosis or treatment decision. - Fact Sheets for this EUA can be found at the following links: For Healthcare Providers: www.fda.gov/media/457486/download For Patients: www.fda.gov/media/120162/download - Reference Value: Negative Performed By: #### C OVID #### [address] [address] TRACY SARS CoV-2 RT PCR Not detected [facility] Comment on above: Order Comment: Is th is order Clinic Collect?->Yes Is this specimen being sent to an external lab?->No Release to patient->Automatic 08535&Nasopharyngeal swab^\S\^Nasal Septum&Nasal Septum Performed By: #### C OVID #### [place] [address] SARS-CoV-2 (COVID-19) RT-PCR on 07-20-2021 Hospitalized? No Normal [facility] Comment on above: Order Comment: Is th is order Clinic Collect?->Yes Is this specimen being sent to an external lab?->No Release to patient->Automatic [id number]&Nasopharyngeal swab^\S\^Nasal Septum&Nasal Septum Performed By: #### C OVID #### [place] [address] ICU? No Normal [facility] Comment on above: Order Comment: Is th is order Clinic Collect?->Yes Is this specimen being sent to an external lab?->No Release to patient->Automatic [id number]&Nasopharyngeal swab^\S\^Nasal Septum&Nasal Septum Performed By: #### C OVID #### [place] [address] ? Unknown Normal [facility] Comment on above: Order Comment: Is th is order Clinic Collect?->Yes Is this specimen being sent to an external lab?->No Release to patient->Automatic [id number]&Nasopharyngeal swab^\S\^Nasal Septum&Nasal Septum Performed By: #### C OVID #### [address] [address] Resident in congrega care setting? No Normal [facility] Comment on above: Order Comment: Is th is order Clinic Collect?->Yes Is this specimen being sent to an external lab?->No Release to patient->Automatic [id number]&Nasopharyngeal swab^\S\^Nasal Septum&Nasal Septum Performed By: #### C OVID #### [place] [address] Comprehensive Panelon 2018 Albumin mass conc 4.1 g/dL Normal 3.4-5.0 [facility] Comment on above: Performed By: #### L P14 #### [facility] [address] [place] [address] ALP enzyme act/vol 38 U/L Low 46-116 [facility] Comment on above: Performed By: #### L P14 #### [facility] [address] [place] [address] ALT-SGPT Blood 15 U/L Normal 14-63 [facility] Comment on above: Performed By: #### L P14 #### [facility] [address] [place] [address] Anion gap molar conc 15 mmol/L Normal 8-20 [facility] Comment on above: Performed By: #### L P14 #### [facility] [address] [place] [address] AST-SGOT Blood 18 U/L Normal 15-37 [facility] Comment on above: Performed By: #### L P14 #### [facility] [address] [place] [address] Bilirubin Ql (U) 0.4 mg/dL Normal 0.2-1.0 [facility] Comment on above: Performed By: #### L P14 #### [facility] [address] [place] [address] Calcium mass conc 9.4 mg/dL Normal 8.5-10.1 [facility] Comment on above: Performed By: #### L P14 #### [facility] [address] [place] [address] Chloride molar conc 99 mmol/L Normal 98-107 [facility] Comment on above: Performed By: #### L P14 #### [facility] [address] [place] [address] CO2 Blood 25 mEq/L Normal 21-32 [facility] Comment on above: Performed By: #### L P14 #### [facility] [address] [place] [address] Creatinine mass conc 0.67 mg/dL Normal 0.51-0.95 [facility] Comment on above: Performed By: #### L P14 #### [facility] [address] [place] [address] Glucose mass conc 148 mg/dL High 70-99 [facility] Comment on above: Performed By: #### L P14 #### [facility] [address] [place] [address] Potassium molar conc 3.4 mmol/L Low 3.5-5.1 [facility] Comment on above: Performed By: #### L P14 #### [facility] [address] [place] [address] Protein mass conc 7.3 g/dL Normal 6.4-8.2 [facility] Comment on above: Performed By: #### L P14 #### [facility] [address] [place] [address] Sodium molar conc 135 mmol/L Low 136-145 [facility] Comment on above: Performed By: #### L P14 #### [facility] [address] [place] [address] Urea nitrogen mass conc 12 mg/dL Normal 7-25 [facility] Comment on above: Performed By: #### L P14 #### [facility] [address] [place] [address] Urea nitrogen/Creatinine mass ratio 18 mg/mg Normal 10-20 [facility] Comment on above: Performed By: #### L P14 #### [facility] [address] [address] ED NOTEon 10-19-2018 ED NOTE HNO ID: [id number] Author: José Miguel (Rn) LOGAN Rivas Service: Emergency Medicine Author Type: Registered Nurse Type: ED Notes Filed: 10/20/2018 10:23 AM Note Text: Patient Call Back Information ? How are you doing ? no change ? Did we appropriately manage your pain? Yes ? Did you understand your discharge instructions? Yes ? Did you get your prescriptions filled? No ? Were you able to make a follow-up appointment with your physician? Working on it ? Were you comfortable during your stay here? Yes ? Did a member of the ER nursing team round on you during your visit? Yes ? You will receive a patient satisfaction survey in the mail in the nest 2 weeks, please take the time to fill out the survey as your input from your ER visit is very important to us. Yes ? Can we do anything else to help you? No [facility] ED NOTE HNO ID: [id number] Author: Socrates Wang RN Service: Emergency Medicine Author Type: Registered Nurse Type: ED Notes Filed: 10/19/2018 4:48 PM Note Text: Bleeding controlled with packing and txa, placed new 4 x4's for continued direct pressure bleeding control. Normal [facility] ED NOTE HNO ID: [id number] Author: Socrates Noland) LOGAN Wang Service: Emergency Medicine Author Type: Registered Nurse Type: ED Notes Filed: 10/19/2018 4:18 PM Note Text: Dr. Arce packing wound with 1/4 gauze soaked in TXA for bleeding control. Normal [facility] ED NOTE HNO ID: [id number] Author: Socrates Wang RN Service: Emergency Medicine Author Type: Registered Nurse Type: ED Notes Filed: 10/19/2018 3:53 PM Note Text: ..Pt advised on name of medication, why the medication was being administered, possible side effects, and how medication might make them feel once administered. Name of medication lido/epi and txa prior to administration. [facility] ED NOTE HNO ID: [id number] Author: Nedra Noland) LOGAN Sanchez Service: Emergency Medicine Author Type: Registered Nurse Type: ED Notes Filed: 10/19/2018 3:43 PM Note Text: MD at bedside, suction equipment provided. Assist MD with suctioning patient's mouth, visualization of the area and applying gauze to control bleeding. Patient tolerates well. Warm cloth provided to clean her hands. Normal [facility] ED NOTE HNO ID: [id number] Author: Nedra Noland) LOGAN Sanchez Service: Emergency Medicine Author Type: Registered Nurse Type: ED Notes Filed: 10/19/2018 3:25 PM Note Text: Patient states that she had a tooth pulled this morning and has had active breathing since. Her dentist office told her to try gauze and come to the ED. Has active bleeding of lower jaw where tooth was. MD at bedside. Suction provided. Normal [facility] ED PROV NOTEon 10-19-2018 Protein mass conc HNO ID: [id number] Author: Khushi Farley DO Service: Emergency Medicine Author Type: Physician Type: ED Provider Notes Filed: 10/19/2018 4:48 PM Note Text: ED Provider Note Patient Name: Gaetano Rowan SERVICE DATE: 10/19/18 History Patient presents with: Post Op Bleeding Gaetano Rowan is a 32 year old female with history of no chronic medical problems who presents with Post Op Bleeding. Patient tried using gauze prior to arrival. - Symptoms began this morning at 10 am. - Severity: moderate - Timing: constant - Quality: sore - Post Op Bleeding is exacerbated by nothing. - Post Op Bleeding is not exacerbated by anything. - Symptoms are associated with occasionally feeling lightheaded/dizzy. - Symptoms are not associated with shortness of breath, vomiting, syncope, other bleeding, neck pain. - Improved by nothing. - Not improved by anything. Patient presents with persistent moderate bleeding from her extracted tooth site since the tooth was extracted this morning at 10 am. She states the tooth extraction was difficult and they had to remove the tooth in pieces. She states no sutures were placed at the extraction site. She called her dentist office who performed the procedure and recommended additional gauze use. Patient states she can not get it to stop and is feeling dizzy/light headed at times. She has not passed out. No chest pain or shortness of breath. No known bleeding disorder. She is not on blood thinners. No past medical history on file. No past surgical history on file. No family history on file. Social History Social History Main Topics - Smoking status: Never Smoker - Smokeless tobacco: Never Used - Alcohol use Yes Comment: occasionally - Drug use: No - Sexual activity: Not on file ALLERGIES No Known Allergies Review of Systems Constitutional: Negative for fever. HENT: Positive for dental problem (persistent bleeding from extracted tooth site). Negative for drooling, facial swelling, nosebleeds and trouble swallowing. Respiratory: Negative for choking and shortness of breath. Cardiovascular: Negative for chest pain. Gastrointestinal: Negative for nausea and vomiting. Genitourinary: Negative for hematuria. Skin: Positive for wound (extracted tooth site). Negative for color change and rash. Allergic/Immunologic: Negative for immunocompromised state. Neurological: Positive for dizziness and light-headedness. Negative for syncope and headaches. Psychiatric/Behavioral: Negative for agitation and confusion. Physical Exam BP 118/71 Pulse 102 Temp (Src) 98.6 (Temporal Artery) Resp 18 Ht 5' 2 (1.58m) Wt 120 lb (54.4kg) SpO2 100% BMI 21.94 kg/(m2). Physical Exam Constitutional: She is oriented to person, place, and time. She appears well-developed and well-nourished. HENT: Head: Normocephalic and atraumatic. Right Ear: External ear normal. Left Ear: External ear normal. Mouth/Throat: Uvula is midline, oropharynx is clear and moist and mucous membranes are normal. No trismus in the jaw. Abnormal dentition. No tonsillar exudate. Deep opening in the left lower jaw where tooth # 18 was located, active moderate bleeding makes it difficult to fully assess Eyes: Conjunctivae are normal. Neck: Normal range of motion. No JVD present. Cardiovascular: Regular rhythm and intact distal pulses. Tachycardia present. Pulmonary/Chest: Effort normal and breath sounds normal. No stridor. No respiratory distress. Abdominal: Soft. There is no tenderness. Neurological: She is alert and oriented to person, place, and time. Skin: Skin is warm and dry. Capillary refill takes less than 2 seconds. No rash noted. No erythema. No pallor. Psychiatric: She has a normal mood and affect. Her behavior is normal. Nursing note and vitals reviewed. Diagnostic Testing ED Labs Ordered and Reviewed CBC + AUTO DIFF (AK,AV,EU,FV,HL,KATHY,MM,S P) - Abnormal; Notable for the following: Result Value Ref Range WBC 11.2 (*) 4.8 - 10.8 thou/cmm Abs. Neut(Anc) 8.96 (*) 3.00 - 5.67 thou/cmm All other components within normal limits COMPREHENSIVE METABOLIC PANEL (AK,AV,EU,FV,HL,KATHY,MM,S P) - Abnormal; Notable for the following: Sodium 135 (*) 136 - 145 mEq/L Potassium 3.4 (*) 3.5 - 5.1 mEq/L Glucose 148 (*) 70 - 99 mg/dL Alkaline Phosphatase 38 (*) 46 - 116 U/L All other components within normal limits MDRD GFR Procedures ED Course / Clinical Impression Clinical Impressions as of Oct 19 1643 Bleeding from wound, post dental extraction MDM / Disposition / Plan Patient having moderate persistent bleeding from the extraction site of tooth # 18 and has been ongoing since it was removed this morning. She has no bleeding disorder and is not on blood thinners. I initially injected with lidocaine with epi to try to stop/slow the bleeding without improvement. No real tissue I can see due to the excessive bleeding, even with suctioning, to place a suture, so used TXA soaked gauze and applied directly to the extraction site to see if this will resolve or at least decrease the bleeding to be able to see the site better. On reevaluation, bleeding still present, slightly slower, but still can not see the entire extraction site, so packed with iodoform gauze soaked with TXA. Time: 437 pm On re-evaluation, bleeding is now controlled with iodoform gauze in place packed in the extraction site. No active bleeding seen. Patient is feeling better. I discussed attempting to remove the packing and see if the site can be evaluated better to see if a suture can be placed with the potential risk of restarting the bleeding VS leaving the packing in for 24 hours, following up with her dentist. She prefers to leave the packing in for 24 hours. She will call her dentist in the morning to be seen tomorrow. I will start her on antibiotics. Instructed on reasons to return to the ED, otherwise follow up as discussed. Disposition The patient was discharged. Counseled patient and significant other regarding lab results and suspected diagnosis. As well as the need for follow-up. Discharged home with verbal and written instructions. They were instructed to return as needed for persistent or worsening symptoms or any new concerns. Condition at disposition is stable. SIGNATURE: DO Khushi Hyatt DO 10/19/18 1648 Normal [facility] Hemogram/Diffon 10-19-2018 Abs. Baso 0.01 thou/cmm Normal 0.00-0.08 [facility] Comment on above: Performed By: #### L CBCD #### [place] [address] Abs. Montague 0.63 thou/cmm Normal 0.20-1.00 [facility] Comment on above: Performed By: #### L CBCD #### [facility] [address] [address] Abs. Neut (ANC) 8.96 thou/cmm High 3.00-5.67 [facility] Comment on above: Performed By: #### L CBCD #### [place] [address] Basophils/100 WBC (Bld) 0.1 % Normal [facility] Comment on above: Performed By: #### L CBCD #### [place] [address] Eosinophils #/vol (Bld) 0.07 thou/cmm Normal 0.00-0.41 [facility] Comment on above: Performed By: #### L CBCD #### [place] [address] Eosinophils/100 WBC (Bld) 0.6 % Normal [facility] Comment on above: Performed By: #### L CBCD #### [place] [address] Erythrocyte distribution width Ratio (RBC) 11.7 % Normal 11.5-15.9 [facility] Comment on above: Performed By: #### L CBCD #### [place] [address] Hematocrit Volume Fraction (Bld) 39.5 % Normal 37.0-47.0 [facility] Comment on above: Performed By: #### L CBCD #### [place] [address] Hemoglobin mass conc (Bld) 13.6 g/dL Normal 12.0-16.0 [facility] Comment on above: Performed By: #### L CBCD #### [place] [address] Lymphocytes #/vol (Bld) 1.53 thou/cmm Normal 1.50-3.65 [facility] Comment on above: Performed By: #### L CBCD #### [facility] [address] [place], [place] [address] Lymphocytes/100 WBC (Bld) 13.7 % Normal [facility] Comment on above: Performed By: #### L CBCD #### [facility] [address] [place], [place] [address] MCH Entitic mass (RBC) 30.2 pg Normal 27.0-31.0 [facility] Comment on above: Performed By: #### L CBCD #### [facility] [address] [place] [address] MCHC mass conc (RBC) 34.4 % Normal 32.0-36.0 [facility] Comment on above: Performed By: #### L CBCD #### [facility] [address] [place] [address] MCV Entitic volume (RBC) 87.8 fL Normal 81.0-99.0 [facility] Comment on above: Performed By: #### L CBCD #### [facility] [address] [place] [address] Monocytes/100 WBC (Bld) 5.6 % Normal [facility] Comment on above: Performed By: #### L CBCD #### [facility] [address] [place] [address] Platelet mean volume Entitic volume (Bld) 8.6 fL Normal 7.1-10.5 [facility] Comment on above: Performed By: #### L CBCD #### [facility] [address] [address] Platelets #/vol (Bld) 317 thou/cmm Normal 150-400 [facility] Comment on above: Performed By: #### L CBCD #### [facility] [address] [address] RBC #/vol (Bld) 4.50 mil/cmm Normal 4.20-5.40 [facility] Comment on above: Performed By: #### L CBCD #### [place] [address] Seg Neutrophil 80.0 % Normal [facility] Comment on above: Performed By: #### L CBCD #### [facility] [address] [place], [place] [address] WBC #/vol (Bld) 11.2 thou/cmm High 4.8-10.8 [facility] Comment on above: Performed By: #### L CBCD #### [facility] [address] [place], [place] [address] MDRD eGFRon 10-19-2018 GFR/1.73 sq M predicted among non-blacks MDRD vol rate/area (S/P/Bld) mL/min/{1.73_m2} Normal >60mL/min/1.73 m2 [facility] Comment on above: Result Comment: If t he patient is , multiply the result by 1.210. Performed By: #### L GFR #### [facility] [address] [place] [id number] Gram stain for investigation of transfusion reaction Microscopic observation Gram stain Nom (Unsp spec) [facility] Work Phone: Vital Signs Date Time Vital Sign Value Performing Clinician Faci lity 04-14-2022 15:21-0400 Body height 157.48 cm PROCESS PUMPER-C Makenna Chirinos PROCESS PUMPER Work Phone: [facility] Work Phone: 04-14-2022 08:31-0400 Body mass index (BMI) [Ratio] 22.2 kg/m2 PROCESS PUMPER-C Makenna Chirinos PROCESS PUMPER Work Phone: [facility] Work Phone: 04-14-2022 08:31-0400 Body weight 55.11 kg PROCESS PUMPER-C Makenna Mckeons PROCESS PUMPER Work Phone: [facility] Work Phone: 04-14-2022 08:31-0400 Diastolic blood pressure 70 mm[Hg] PROCESS PUMPER-C Makenna Mckeons PROCESS PUMPER Work Phone: [facility] Work Phone: 04-14-2022 08:31-0400 Systolic blood pressure 128 mm[Hg] PROCESS PUMPER-C Makenna Chirinos PROCESS PUMPER Work Phone: [facility] Work Phone: Encounters Encounter Date Encounter Type Care Provider Facility Start: 06-27-2025 ambulatory Shasha Scottie Facilit y:[facility] Start: 06-05-2025 ambulatory Shasha Scottie Facilit y:[facility] Start: 12-09-2024 End: 12-09-2024 Emergency department patient visit YOSSI Sydnie JEFF Facility:[facility] Start: 04-14-2022 End: 04-14-2022 Patient encounter procedure PROCESS PUMPER-Ellis Chirinos PROCESS PUMPER Work Phone: [facility]-Laboratory, Specimen Start: 04-14-2022 End: 04-14-2022 Patient encounter procedure PROCESS PUMPER-Ellis Chirinos PROCESS PUMPER Work Phone: [facility] Start: 10-19-2018 Emergency department patient visit KHUSHI ARCE [facility] Procedures Date Procedure Procedure Detail Performing Clinician Investigation of tra nsfusion reaction PROCESS PUMPER-Ellis Chirinos PROCESS PUMPER Work Phone: Plan of Treatment Date Care Activity Detail Author Start: 04-14-2022 Source specific culture [facility] Work Phone: Genital Culture Genital Culture [facility] Work Phone: Genital microscopy, culture and sensitivities [facility] Work Phone: Immunizations Immunization Date Immunization Notes Care Provider Srikanth albert 12-07-2018 tetanus toxoid, redu davey diphtheria toxoid, and acellular pertussis vaccine, adsorbed PROCESS PUMPER-Ellis Chirinos PROCESS PUMPER Work Phone: [facility] Work Phone: Payers Date Payer Category Payer Self-pay [id number] 2024 Unknown [id number] Private Health Insurance [facility] [id number] Private Health Insurance [facility] [id number] Unknown [id number] Unknown [id number] Social History Date Type Detail Facility Start: 04-14-2022 Tobacco smoking stat [facility] Unknown if ever smoked [facility] Work Phone: Start: 1985 Sex Assigned At Female [facility] Work Phone: Evaluation note Note Date & Type Note Facility Evaluation note Diagnosis Onset Date Inclusion cyst of vulva none active Vaginal odor noneactive [facility] Work Phone: Summary Purpose Family History No Family History Records Found Relationship Condition Age at Onset Recorded Date/T yue father Cerebrovascular accident (CVA) Unknown Hypertension Unknown Diabetes mellitus Unknown Myocardial infarction Unknown mother Alzheimer's disease Unknown grandfather Diabetes mellitus Unknown Malignant neoplasm of skin Unknown grandmother Malignant neoplasm of breast Unknown Advance Directives No Advanced Directives Records FoundNo Advanced Directives Records FoundNo Advanced Directives Records FoundNo Advanced Directives Records FoundNo Advanced Directives Records FoundNo Advanced Directives Records Found Chief Complaint and Reason for Visit Chief Complaint vaginal sores, painf ul Reason for Visit Inclusion cyst of vu lva Vaginal odor Additional Source Comments INFORMATION SOURCE (unrecogn ized section and content) DATE CREATED AUTHOR 11/07/2018 [facility] DATE CREATED AUTHOR AUTHOR'S ORGANIZ ATION 11/07/2018 [facility] DATE CREATED AUTHOR AUTHOR'S ORGANIZ ATION 04/24/2022 [facility] DATE CREATED AUTHOR AUTHOR'S ORGANIZ ATION 08/19/2022 [facility] DATE CREATED AUTHOR AUTHOR'S ORGANIZ ATION 12/10/2024 [facility] DATE CREATED AUTHOR AUTHOR'S ORGANIZ ATION 06/05/2025 [facility] Goals (unrecognized section and content) Goals may be documented in a n alternate section FOR RECORDS PERTAINING TO PATIENTS WHO ARE OR HAVE BEEN ENROLLED IN A CHEMICAL DEPENDENCY/SUBSTANCEABUSE PROGRAM, SOME INFORMATION MAY BE OMITTED. This clinical summary was aggregated from multiple sources. Caution should be exercised in using it in the provision of clinical care. This summary normalizes information from multiple sources, and as a consequence, information in this document may materially change the coding, format and clinical context of patient data. In addition, data may be omitted in some cases. CLINICAL DECISIONS SHOULD BE BASED ON THE PRIMARY CLINICAL RECORDS. [facility] [employer] [facility]. provides no warranty or guarantee of the accuracy or completeness of information in this document.
== END | disposition home or self-care (01) ==
PROVIDERS: PCP Internal Medicine; Referring Provider Internal Medicine; Visit Provider Internal Medicine
DX: R00.2 Palpitations (principal)
CPT/HCPCS: 93225; 93226